=== PATIENT | female | born 1980 ===

== ENCOUNTER 2025-01-25 11:21 | Outpatient (CLI) | payer OTHER | END 2025-01-25 11:33 | disposition home or self-care (01) | LOC: RAD 11:21 | DX: S82.62XD Displaced fracture of lateral malleolus of left fibula, subsequent encounter for closed fracture with routine healing (principal) ==

== ENCOUNTER 2025-04-30 11:43 | Outpatient (CLI) | payer OTHER | END 2025-04-30 11:56 | disposition home or self-care (01) | LOC: RAD 11:43 | DX: M25.561 Pain in right knee (principal) ==